=== PATIENT | female | born 1995 | race Caucasian/White ===

== ENCOUNTER 2017-12-13 13:59 | Emergency (ER) | payer SELFPAY ==
[~2017-12-13] VITALS: Ht 170.2 cm; Wt 65.9 kg
[2017-12-13 14:08] VITALS: BP 119/65; PULSE 86; TEMP 98.7
[2017-12-13] MEDS ORDERED: BACTRIM DS 8001 TAB PO (14:28)
== END 2017-12-13 14:32 | disposition home or self-care (01) ==
LOC: COL.ER 13:59
DX: S60.511A Abrasion of right hand, initial encounter (principal); W55.03XA Scratched by cat, initial encounter; Y92.830 Public park as the place of occurrence of the external cause